=== PATIENT | male | born 1950 | race Caucasian/White ===

== ENCOUNTER 2018-03-07 11:05 | Inpatient (IN) | payer OTHER ==
[~2018-03-07] VITALS: Ht 172.7 cm; Wt 70.5 kg
[2018-03-07] VITALS (9 sets, daily range): BP systolic 148–174; BP diastolic 83–101
[2018-03-07] MEDS ORDERED: LISINOPRIL2.5 MG ORAL (12:18)
[2018-03-07] MEDS ORDERED: GLIPIZIDE5 MG ORAL (12:18)
[2018-03-07] MEDS ORDERED: LR 1000ml 1,000 ML IVLG SCH (13:22)
--- NOTE | 2018-03-07 13:27 | Anethesia Preoperative Eval ---
Anesthesia Pre-op PMH/ROS General Date of Evaluation: Mar 07, 2018 Time of Evaluation: 14:49 Anesthesiologist: Alverto ASA Score: ASA 3 Mallampati Score Class I : Soft palate, uvula, fauces, pillars visible Class II: Soft palate, uvula, fauces visible Class III: Soft palate, base of uvula visible Class IV: Only hard plate visible Mallampati Classification: Class II Surgeon: Ciara Diagnosis: Neck Pain Surgical Procedure: ADR C5-6 Anesthesia History: none Social History: current smoker Family History: no anesthesia problems Allergies: Coded Allergies: IBUPROFEN (Verified Allergy, Unknown, 03/07/18) Medications: see eMAR Past Medical History Cardiovascular: Reports: HTN Gastrointestinal/Genitourinary: Reports: other - Colitis Neurologic/Psychiatric: Reports: depression/anxiety Endocrine: Reports: DM Hematology/Immune: Reports: other - Hep C, Cirrohsis PSxH Narrative: Cholecystectomy Anesthesia Pre-op Phys. Exam Physician Exam Last Vital Signs Date Time Temp Pulse Resp B/P (MAP) Pulse Ox O2 Delivery O2 Flow Rate FiO2 03/07/18 12:22 Room Air 03/07/18 11:48 97.0 62 18 148/92 (110) 99 97.0 Constitutional: NAD Neurologic: CN 2-12 intact Cardiovascular: RRR Respiratory: CTA Gastrointestinal: S/NT/ND Airway Exam Mallampati Score: Class II MO: full ROM: limited Teeth: missing, intact Anesthesia Pre-op A/P Risk Assessment & Plan Assessment: ASA 3 Plan: GA, BIS, GlideScope Go Status Change Before Surgery: No Pre-Antibiotics Dru Grams Ancef IV Given Within 1 Hr of Incision: Yes Time Given: 15:06 Daniele Connolly MD Mar 07, 2018 13:27
--- NOTE | 2018-03-07 13:28 | Immediate Post-Op Evaluation ---
Immediate Post-Op Evalulation Immediate Post-Op Evalulation Procedure: ADR C5-6 Date of Evaluation: Mar 07, 2018 Time of Evaluation: 18:25 IV Fluids: 1000 LR Blood Products: 0 Estimated Blood Loss: 75 Urinary Output: 400 Blood Pressure Systolic: 167 Blood Pressure Diastolic: 101 Pulse Rate: 67 Respiratory Rate: 16 O2 Sat by Pulse Oximetry: 100 Temperature (Fahrenheit): 97.9 Pain Score (1-10): 3 Nausea: No Vomiting: No Complications 0 Patient Status: awake, reacts, patent, extubated, none Hydration Status: adequate Dru Grams Ancef IV Given Within 1 Hr of Incision: Yes Time Given: 15:06 Daniele Connolly MD Mar 07, 2018 13:28
[2018-03-07] MEDS ORDERED: Atropine Inj 1mg/10ml Syr IV PRN (13:30)
[2018-03-07] MEDS ORDERED: LORazepam Inj 2mg/ml 1ml IV PRN (13:30)
[2018-03-07] MEDS ORDERED: Norco 5mg/325mg tab ORAL PRN ×2 (13:30→18:15)
[2018-03-07] MEDS ORDERED: Midazolam 2mg/2ml Inj IVP PRN (13:30)
[2018-03-07] MEDS ORDERED: fentaNYL 100 mcg/2 mL IV PRN (13:30)
[2018-03-07] MEDS ORDERED: Hydromorphone 0.5mg/0.5ml inj IVP PRN (13:30)
[2018-03-07] MEDS ORDERED: Labetalol 5mg/ml 20ml vial IV PRN (13:30)
[2018-03-07] MEDS ORDERED: oxyCODONE HCL/Acetaminophen 5/325mg ORAL PRN (13:30)
[2018-03-07] MEDS ORDERED: Metoclopramide 10mg/2ml Inj IVP PRN (13:30)
[2018-03-07] MEDS ORDERED: HYDROcodone/Acetamin 7.5/325 tab ORAL PRN ×3 (13:30→18:15)
[2018-03-07] MEDS ORDERED: Acetaminophen (Non formulary) 100 ML IV ONE (13:30)
[2018-03-07] MEDS ORDERED: DiphenhydrAMINE 50mg/ml Inj IVP PRN ×2 (13:30→23:30)
[2018-03-07] MEDS ORDERED: Lidocaine 1% Plain 30 ml INJ ONE ×2 (13:42→16:37)
[2018-03-07] MEDS ORDERED: Thrombin 5000 units spray kit TOPIC ONE (14:08)
[2018-03-07] MEDS ORDERED: Thrombin 5000 units TOPIC ONE (14:08)
[2018-03-07] MEDS ORDERED: Gelfoam Absorbable 1gm powder pkt TOPIC ONE (14:09)
[2018-03-07] MEDS ORDERED: fentaNYL 100 mcg/2 mL IV ONE ×2 (14:16→16:20)
--- NOTE | 2018-03-07 14:28 | Pre-Procedure Note/Attestation ---
Pre-Procedure Note/Attestation Complete Prior to Procedure Planned Procedure: not applicable Procedure Narrative: ADR C5/6 vs ACDF C5/6 Indications for Procedure Pre-Operative Diagnosis: C5/6 stenosis. Attestation I attest that I discussed the nature of the procedure; its benefits; risks and complications; and alternatives (and the risks and benefits of such alternatives ), prior to the procedure, with the patient (or the patient's legal policy services representative). I attest that, if there was a reasonable possibility of needing a blood transfusion, the patient (or the patient's legal policy services representative) was given the [facility] standardized written summary, pursuant to the Aravind Anita Blood Safety Act ([place] Health and Safety Code # 1645, as amended). I attest that I re-evaluated the patient just prior to the surgery and that there has been no change in the patient's H&P, except as documented below:no changes Hardik Urbina MD Mar 07, 2018 14:28
[2018-03-07] MEDS ORDERED: Zemuron 50mg/5ml Inj IV ONE (15:00)
[2018-03-07] MEDS ORDERED: Labetalol 5mg/ml 20ml vial IV ONE (15:00)
[2018-03-07] MEDS ORDERED: Dexamethasone 4mg/ml vial ONE (15:00)
[2018-03-07] MEDS ORDERED: Sterile Water Irrig 1000ml IRRIG ONE (15:00)
[2018-03-07] MEDS ORDERED: LR 1000ml ONE (15:00)
[2018-03-07] MEDS ORDERED: NS Irrig 1000ml ONE (15:00)
[2018-03-07] MEDS: Bacitracin 50000 Units Vial ONE ×2 (15:00→17:19)
[2018-03-07] MEDS ORDERED: NS Irrig 1000ml IRRIG ONE (15:00)
[2018-03-07] MEDS ORDERED: Propofol 1,000mg/ 100ml btl IV ONE (15:00)
[2018-03-07] MEDS ORDERED: Glycopyrrolate 0.2mg/ml 1ml Vial ONE ×2 (16:29→16:33)
[2018-03-07] MEDS ORDERED: Bacitracin 50000 Units Vial ONE (17:16)
--- NOTE | 2018-03-07 17:55 | Brief Operative Note ---
Immediate Post Operative Note Operative Note Pre-op Diagnosis: C5/6 stenosis. Procedure: ADR C5/6 Post-op Diagnosis: same Post-op Diagnosis: same as pre-op Findings: consistent w/pre-op dx studies Surgeon: fermin Passenger Service Supervisor: joaquim Anesthesiologist: usman Anesthesia: general Specimen: yes Complications: none Condition: stable Fluids: per anesthesia Estimated Blood Loss: minimal Drains: none Implant(s) used?: Yes - mobjules edmonds [id number] Hardik Urbina MD Mar 07, 2018 17:55
[2018-03-07] MEDS ORDERED: HYDROmorphone 1mg/ml Carpuject IVP PRN (18:15)
[2018-03-07] MEDS: ceFAZolin 1gm/50ml Premix 50 ML IV SCH (22:47)
[2018-03-07] MEDS: LR 1000ml 1,000 ML IV SCH (22:49)
[2018-03-07] MEDS ORDERED: ceFAZolin sod 1 GM in NS 55 ML IV SCH (23:00)
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
[2018-03-07] MEDS ORDERED: methylPREDNISolone Sod Succ 500 MG in NS 110 ML IVPB ONE (23:30)
[2018-03-08] VITALS: BP 152/84
[2018-03-08 04:00] VITALS: BP 106/61
[2018-03-08] MEDS: LR 1000ml 1,000 ML IV SCH (06:13)
[2018-03-08] MEDS: ceFAZolin 1gm/50ml Premix 50 ML IV SCH (07:02)
[2018-03-08] MEDS: NovoLOG Insulin Flexpen SUBQ SCH ×4 (07:09→21:00)
[2018-03-08 07:43] LABS: ANION GAP 9 mmol/L (5-15); BLOOD UREA NITROGEN 11 mg/dL (7-18); CALCIUM 8.8 MG/DL (8.5-10.1); CARBON DIOXIDE 26 MMOL/L (21-32); CHLORIDE 102 MMOL/L (98-107); CREATININE 0.9 MG/DL (0.55-1.30); POTASSIUM 4.1 MMOL/L (3.5-5.1); SODIUM 137 MMOL/L (136-145)
[2018-03-08 08:02] VITALS: BP 129/72
[2018-03-08] MEDS: Docusate 100mg cap ORAL SCH ×2 (09:08→18:12)
[2018-03-08] MEDS: Lisinopril 2.5mg tab ORAL SCH (09:09)
--- NOTE | 2018-03-08 10:12 | Diagnostic Imaging Report ---
Indication: Neck pain, intraoperative imaging Technique: Intraoperative images Comparison: none Findings: Intraoperative images demonstrate metallic marker projected anterior to the inferior aspect of C4. Subsequent images document placement of a disc prosthesis at C5-6. Impression: Intraoperative imaging, as described
[2018-03-08 12:00] VITALS: BP 126/82
[2018-03-08] MEDS ORDERED: DiphenhydrAMINE 50mg/ml Inj IVP SCH (14:07)
[2018-03-08] MEDS ORDERED: DiphenhydrAMINE 50mg/ml Inj IVP PRN (14:15)
[2018-03-08] MEDS ORDERED: oxyCODONE 5mg IR tab ORAL SCH (14:25)
[2018-03-08] MEDS ORDERED: oxyCODONE 5mg IR tab ORAL PRN (14:30)
[2018-03-08] MEDS ORDERED: HYDROmorphone 1mg/ml Carpuject IVP PRN (14:30)
--- NOTE | 2018-03-08 15:32 | 48 Hour Post Anesthesia Eval ---
Post Anesthesia Evaluation Procedure: ADR C5-6 Date of Evaluation: Mar 08, 2018 Airway: patent Nausea: No Vomiting: No Pain Intensity: 2 Hydration Status: adequate Cardiopulmonary Status: at baseline Mental Status/LOC: patient returned to baseline Post-Anesthesia Complications: 0 Follow-up care needed: N/A - further care as per primary team Shalonda Chauhan MD Mar 08, 2018 15:32
[2018-03-08 16:51] VITALS: BP 115/72
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
[2018-03-08] MEDS: oxyCODONE 5mg IR tab ORAL PRN (19:53)
[2018-03-08 20:00] VITALS: BP 141/79
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
[2018-03-09 03:58] VITALS: BP 135/86
[2018-03-09] MEDS: oxyCODONE 5mg IR tab ORAL PRN ×2 (04:00→08:33)
[2018-03-09] MEDS: NovoLOG Insulin Flexpen SUBQ SCH (06:30)
--- NOTE | 2018-03-09 07:45 | Progress Note ---
DATE: 03/09/2018 ACUTE PAIN MANAGEMENT PHYSICIAN PROGRESS NOTE OBJECTIVE: VITAL SIGNS: Within normal limits. Afebrile, pulse 85, respirations 19, blood pressure 135/86, and oxygen saturation 96% on room air. LABORATORY STUDIES: From yesterday, March 08, 2018 showed sodium 137, potassium 4.1, chloride 102, bicarb 26, BUN 11, creatinine 0.9, glucose 197, and calcium 8.8. MEDICATIONS: Medication administration record reviewed. Medications include Colace, Januvia, Zestril, and sliding-scale insulin. P.r.n. medications include Zofran, Restoril, Benadryl, oxycodone, and Dilaudid. I spent over 60 minutes in consultation today. I saw the patient at the bedside after discussion with the nurse RN, Lexa. I discussed the case with Internal Medicine, Dr. Brian Castañeda. The patient did tolerate the oral oxycodone without any adverse side effects. There were no allergic reactions, no tongue swelling or difficulty swallowing. The patient has tolerated doses of both 2.5 mg of oxycodone instant release along with 5 mg. The outpatient hospital pharmacy dispense 10 tablets of the Percocet 10 mg tablets, due to the patient's request for a small supply since he was paying a falcon walsh. I will leave the second prescription for additional 10 pills if the patient finds and needs an additional prescription. The patient is breathing comfortably on room air. He is tolerating advancing diet. He is able to sleep comfortably at-times. He has normal vital signs. He denies any shortness of breath or chest pain. He is breathing, swallowing, and phonating within normal limits. I will defer to Internal Medicine, Dr. Castañeda, to discharge the patient to his family later today, and see no contraindications from a surgical pain management perspective at this time. Brian Abebe M.D. : JOEL JOB#: [id number] CC:
[2018-03-09 08:00] VITALS: BP 137/64
[2018-03-09] MEDS: Docusate 100mg cap ORAL SCH (08:28)
[2018-03-09 08:29] VITALS: BP 137/86
[2018-03-09] MEDS: Lisinopril 2.5mg tab ORAL SCH (08:29)
[2018-03-09] MEDS ORDERED: PERCOCET 10-321 EACH ORAL (10:15)
[2018-03-09] MEDS ORDERED: OXYCODONE HCL10 MG ORAL (10:31)
[2018-03-09] MEDS ORDERED: OXYCODONE HCL5 M2 ORAL (10:32)
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
== END 2018-03-09 11:00 | disposition home or self-care (01) | DRG 518 ==
LOC: SDSOVERFLO 11:05 → 3E 18:13
PROC: 0RT30ZZ Resection of Cervical Vertebral Disc, Open Approach (ICD-10-PCS; principal; 2018-03-07 13:30)
PROC: 0RR30JZ Replacement of Cervical Vertebral Disc with Synthetic Substitute, Open Approach (ICD-10-PCS; principal; 2018-03-07 13:30)
DX: M48.02 Spinal stenosis, cervical region (principal); M54.12 Radiculopathy, cervical region; B18.2 Chronic viral hepatitis C; K74.60 Unspecified cirrhosis of liver; E11.9 Type 2 diabetes mellitus without complications; I10 Essential (primary) hypertension; G89.18 Other acute postprocedural pain
CPT/HCPCS: 36415; 72040; 76001; 80048; 82962; 86850; 86900; 86901; 87081; 94003; 94150; J1815; J2405